=== PATIENT | female | born 1990 | race Caucasian/White ===

== ENCOUNTER 2017-11-12 20:57 | Emergency (ER) | payer OTHER ==
[2017-11-12 21:22] VITALS: BP 126/72; PULSE 97; O2SAT 95
--- NOTE | 2017-11-12 21:27 | ERPHSYRPT ---
- History of Present Illness Time Seen by Provider: 11/12/17 21:22 Source: patient Exam Limitations: no limitations Patient Subjective Stated Complaint: cough nasal congestion x 2-3 days. productive but has not looked at it.. denies fever. Triage Nursing Assessment: alert and oriented in no acute distress. lungs clear bilat. wstates her ears are hurting because of the head congestion. denies fever. Physician History: 27-year-old white female arrives with complaint of nasal congestion pain in her ears runny nose productive clear cough symptoms for 2-3 days. Patient has had nol fever no vomiting no diarrhea. Past medical history is negative Timing/Duration: day(s) (2-3 days) Severity: mild Modifying Factors: Improves With: nothing Associated Symptoms: cough, other (runny nose bilateral ear pain), No nausea, No vomiting, No abdominal pain, No shortness of breath, No heartburn, No diaphoresis, No chills, No chest pain, No fever, No headaches, No loss of appetite, No malaise, No rash, No syncope, No seizure, No weakness Immunizations Up to Date: (unknown) - Review of Systems Constitutional: No Fever, No Chills Eyes: No Symptoms Ears, Nose, & Throat: Ear Pain, Nose Congestion, Nose Discharge, No Ear Discharge, No Hearing Changes, No Tinnitus, No Nose Pain, No Sinus Drainage, No Epistaxis, No Mouth Pain, No Mouth Swelling, No Loose Teeth, No Throat Pain, No Throat Swelling, No Hoarse, No Painful Swallowing, No Snoring, No Stridor Respiratory: Cough, No Cyanosis, No Dyspnea, No Dyspnea on Exertion (ESCOTO), No Stridor, No Wheezing Cardiac: No Chest Pain, No Edema, No Syncope Abdominal/Gastrointestinal: No Abdominal Pain, No Nausea, No Vomiting, No Diarrhea Genitourinary Symptoms: No Dysuria Musculoskeletal: No Symptoms, No Back Pain, No Neck Pain Skin: No Rash Neurological: No Dizziness, No Focal Weakness, No Sensory Changes Psychological: No Symptoms Endocrine: No Symptoms All Other Systems: Reviewed and Negative - Past Medical History Pertinent Past Medical History: Yes Neurological History: No Pertinent History Cardiac History: No Pertinent History Respiratory History: No Pertinent History Endocrine Medical History: No Pertinent History Musculoskeletal History: No Pertinent History GI Medical History: No Pertinent History History: No Pertinent History Psycho-Social History: No Pertinent History Female Reproductive Disorders: No Pertinent History - Past Surgical History Past Surgical History: No - Social History Smoking Status: Current every day smoker Exposure to second hand smoke: No Drug Use: none Patient Lives Alone: No - Female History Hx Now: No - Nursing Vital Signs Nursing Vital Signs: Initial Vital Signs Temperature 98.2 F 11/12/17 21:06 Pulse Rate 97 H 11/12/17 21:06 Respiratory Rate 18 11/12/17 21:06 Blood Pressure 126/72 11/12/17 21:06 O2 Sat by Pulse Oximetry 95 11/12/17 21:06 Pain Scale Pain Intensity 0 - Physical Exam General Appearance: no apparent distress, alert Eye Exam: PERRL/EOMI, eyes nml inspection Ears, Nose, Throat Exam: TMs normal, pharynx normal, moist mucous membranes, other (clear nasal discharge), No TM abnormal (R), No TM abnormal (L) Neck Exam: normal inspection, non-tender, supple, full range of motion Respiratory Exam: normal breath sounds, lungs clear, No respiratory distress Cardiovascular Exam: regular rate/rhythm, normal heart sounds, normal peripheral pulses Gastrointestinal/Abdomen Exam: soft, normal bowel sounds, No tenderness, No mass Back Exam: normal inspection, normal range of motion, No CVA tenderness, No vertebral tenderness Extremity Exam: normal inspection, normal range of motion, pelvis stable Neurologic Exam: alert, oriented x 3, cooperative, normal mood/affect, nml cerebellar function, nml station & gait, sensation nml, No motor deficits Skin Exam: normal color, warm, dry, No rash Lymphatic Exam: No adenopathy SpO2 Interpretation: normal (95%) SpO2: 95 Oxygen Delivery: Room Air - Course Nursing assessment & vital signs reviewed: Yes - Progress Progress: improved Progress Note: 11/12/17 21:25 27-year-old white female with complaint of nasal congestion bilateral ear pain cough productive of clear mucus symptoms for 2-3 days no fever no nausea no vomiting. Patient does smoke. Physical examination unremarkable except for small amount of clear nasal discharge. Impression upper respiratory infection. Plan quit smoking plenty of fluids Tylenol every 4-6 hours as needed for pain or temperature greater than 100.5. - Departure Time of Disposition: 21:26 Departure Disposition: Home Clinical Impression: URI (upper respiratory infection) Qualifiers: URI type: unspecified URI Qualified Code(s): J06.9 - Acute upper respiratory infection, unspecified Condition: Fair Critical Care Time: No Referrals: BRANDI OLIVEIRA [Primary Care Provider] - Additional Instructions: Return home. Plenty of fluids. Stop smoking. Tylenol every 4-6 hours as needed for pain or temperature greater than 100.5. OTC decongestants as needed. Follow-up with your family doctor if symptoms are worse, no better in 48 hours, or persist longer than one week. Return for acute distress or for severe symptoms.
== END 2017-11-12 21:56 | disposition home or self-care (01) ==
LOC: ED 20:57
DX: J06.9 Acute upper respiratory infection, unspecified (principal)
CPT/HCPCS: 99281

== ENCOUNTER 2018-04-02 16:53 | Emergency (ER) | payer OTHER ==
--- NOTE | 2018-04-02 17:36 | ERPHSYRPT ---
- History of Present Illness Time Seen by Provider: 04/02/18 17:31 Source: patient Exam Limitations: no limitations Patient Subjective Stated Complaint: Started with a cough yesterday and woke up today and was having a hard time breathing Triage Nursing Assessment: Pt A&O x3, stated that she had a cough that started yesterday and woke today to shortness of breath, T 102.1, productive green cough , no edema, wheezes in left upper lobe, no difficulty with strength, pulses normal Physician History: This is a 28-year-old white female who arrives with complaint of feeling short of breath fever general malaise symptoms since today she denies nausea or vomiting states she has had a sore throat. Past medical history is negative past surgical history tonsillectomy and adenoidectomy Social history denies tobacco alcohol or illicit drug use Timing/Duration: today Severity: moderate Modifying Factors: Improves With: nothing Associated Symptoms: shortness of breath, fever, malaise, other (sore throat), No nausea, No vomiting, No abdominal pain, No heartburn, No diaphoresis, No cough, No chills, No chest pain, No headaches, No loss of appetite, No rash, No syncope, No seizure, No weakness Allergies/Adverse Reactions: Penicillins Allergy (Verified 04/02/18 17:14) Hives - Review of Systems Constitutional: Fever, Malaise, No Chills, No Fatigue, No Lethargy, No Night Sweats, No Weakness, No Weight Loss Eyes: No Symptoms Ears, Nose, & Throat: Throat Pain, No Ear Pain, No Ear Discharge, No Hearing Changes, No Tinnitus, No Nose Pain, No Nose Congestion, No Nose Discharge, No Sinus Drainage, No Epistaxis, No Mouth Pain, No Mouth Swelling, No Loose Teeth, No Throat Swelling, No Hoarse, No Painful Swallowing, No Snoring, No Stridor Respiratory: Cough, Dyspnea, No Cyanosis, No Dyspnea on Exertion (ESCOTO), No Stridor, No Wheezing Cardiac: No Chest Pain, No Edema, No Syncope Abdominal/Gastrointestinal: No Abdominal Pain, No Nausea, No Vomiting, No Diarrhea Genitourinary Symptoms: No Dysuria Musculoskeletal: No Back Pain, No Neck Pain Skin: No Rash Neurological: No Dizziness, No Focal Weakness, No Sensory Changes Psychological: No Symptoms Endocrine: No Symptoms All Other Systems: Reviewed and Negative - Past Medical History Pertinent Past Medical History: Yes Neurological History: No Pertinent History ENT History: No Pertinent History Cardiac History: No Pertinent History Respiratory History: No Pertinent History Endocrine Medical History: No Pertinent History Musculoskeletal History: No Pertinent History GI Medical History: No Pertinent History History: No Pertinent History Psycho-Social History: No Pertinent History Female Reproductive Disorders: No Pertinent History - Past Surgical History Past Surgical History: Yes - Social History Smoking Status: Current every day smoker How long have you smoked: 11 yrs Exposure to second hand smoke: No Drug Use: none Patient Lives Alone: No - Female History Hx Last Menstrual Period: 2 yrs ago-- Hx Now: No - Nursing Vital Signs Nursing Vital Signs: Initial Vital Signs Temperature 102.1 F 04/02/18 17:01 Pulse Rate 118 H 04/02/18 17:01 Blood Pressure 139/83 04/02/18 17:01 O2 Sat by Pulse Oximetry 92 L 04/02/18 17:01 Pain Scale Pain Intensity 0 - Physical Exam General Appearance: mild distress, other (wwell-developed obese white female flushed in appearance) Eye Exam: PERRL/EOMI, eyes nml inspection Ears, Nose, Throat Exam: normal ENT inspection, TMs normal, pharynx normal, moist mucous membranes, pharyngeal erythema (slight pharyngeal erythema) Neck Exam: normal inspection, non-tender, supple, full range of motion Respiratory Exam: normal breath sounds, lungs clear, No respiratory distress Cardiovascular Exam: tachycardia, No murmur Gastrointestinal/Abdomen Exam: soft, normal bowel sounds, No tenderness, No mass Back Exam: normal inspection, normal range of motion, No CVA tenderness, No vertebral tenderness Extremity Exam: normal inspection, normal range of motion, pelvis stable Neurologic Exam: alert, oriented x 3, cooperative, 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, normal mood/affect, nml cerebellar function, nml station & gait, sensation nml, No motor deficits Skin Exam: warm, dry, other (flushed in appearance), No rash SpO2 Interpretation: normal (94%) SpO2: 94 Oxygen Delivery: Room Air - Course Nursing assessment & vital signs reviewed: Yes EKG Interpreted by Me: RATE (115 BPM), Sinus Tach, NORMAL AXIS, Other (ekg: sinus tachycardia, 1 15 bpm, normal axis, no acute ST or T wave changes noted) - Radiology Exams Chest X-ray Interpretation: Interpreted by me (no acute disease process noted) Ordered Tests: Active Orders 24 hr Category Date Time Status Clean Catch Urine Specimen STAT Care 04/02/18 17:23 Active EKG-ER Only STAT Care 04/02/18 17:46 Active IV Insertion STAT Care 04/02/18 17:16 Active CHEST 1 VIEW (PORTABLE) Stat Exams 04/02/18 18:39 Taken BLOOD CULTURE Stat Lab 04/02/18 17:30 Received BLOOD CULTURE Stat Lab 04/02/18 18:09 Received CBC W DIFF Stat Lab 04/02/18 17:45 Completed CMP Stat Lab 04/02/18 17:45 Completed CULTURE, THROAT Stat Lab 04/02/18 17:45 Received CULTURE,URINE Stat Lab 04/02/18 17:52 Received D-DIMER QUANTITATION Stat Lab 04/02/18 17:45 Completed HCG QUALITATIVE,SERUM Stat Lab 04/02/18 17:45 Completed Lactic Acid Stat Lab 04/02/18 17:46 Completed STREP SCREEN-BETA A Stat Lab 04/02/18 17:45 Completed UA W/ MICROSCOPIC Stat Lab 04/02/18 17:52 Completed Respiratory Nebulizer STAT RT 04/02/18 19:38 Completed Medication Summary Discontinued Medications Generic Name Dose Route Start Last Admin Trade Name Freq PRN Reason Stop Dose Admin Acetaminophen 975 mg 04/02/18 18:39 04/02/18 18:41 Tylenol 325 Mg PO 04/02/18 18:40 975 mg STAT ONE Administration Acetaminophen Confirm 04/02/18 18:42 Tylenol 325 Mg Administered 04/02/18 18:43 Dose 975 mg .ROUTE .STK-MED ONE Albuterol/Ipratropium 3 ml 04/02/18 19:37 04/02/18 19:59 Duoneb 0.5-3 Mg/3 Ml Neb IH 04/02/18 19:38 3 ml STAT ONE Administration Albuterol/Ipratropium Confirm 04/02/18 19:58 Duoneb 0.5-3 Mg/3 Ml Neb Administered 04/02/18 19:59 Dose 3 ml IH .STK-MED ONE Ceftriaxone Sodium/Dextrose 1 g in 50 mls @ 100 mls/hr 04/02/18 18:31 18:37 Rocephin 1 Gm-D5w 50 Ml Bag IV 04/02/18 19:00 Infused STAT STA Infusion Ceftriaxone Sodium/Dextrose Confirm 04/02/18 18:32 Rocephin 1 Gm-D5w 50 Ml Bag Administered 04/02/18 18:33 Dose 1 g in 50 mls @ ud IV .STK-MED ONE Sodium Chloride 1,000 mls @ 999 mls/hr 04/02/18 18:50 04/02/18 18:53 Sodium Chloride 0.9% 1000 Ml IV 04/02/18 19:50 999 mls/hr .Q1H1M STA Administration Sodium Chloride 1,000 mls @ 999 mls/hr 04/02/18 18:51 04/02/18 18:53 Sodium Chloride 0.9% 1000 Ml IV 04/02/18 19:51 999 mls/hr .Q1H1M STA Administration Sodium Chloride Confirm 04/02/18 18:52 Sodium Chloride 0.9% 1000 Ml Administered 04/02/18 18:53 Dose 2,000 mls @ ud .ROUTE .STK-MED ONE Lab/Rad Data: Laboratory Result Diagrams 04/02/18 17:45 04/02/18 17:45 Laboratory Results 04/02/18 04/02/18 04/02/18 Range/Units 17:52 17:46 17:45 WBC (4.0-10.5) K/mm3 RBC (4.1-5.4) M/mm3 Hgb (12.0-16.0) gm/dl Hct (35-47) % MCV (78-100) fl MCH (26-32) pg MCHC (32-36) g/dl RDW (11.5-14.0) % Plt Count (150-450) K/mm3 MPV (6-9.5) fl Gran % (36.0-66.0) % Eos # (Auto) (0-0.5) Absolute Lymphs (auto) (1.0-4.6) Absolute Monos (auto) (0.0-1.3) Lymphocytes % (24.0-44.0) % Monocytes % (0.0-12.0) % Eosinophils % (0.00-5.0) % Basophils % (0.0-0.4) % Absolute Granulocytes (1.4-6.9) Basophils # (0-0.4) D-Dimer (215-500) ng/mL Sodium (137-145) mmol/L Potassium (3.5-5.1) mmol/L Chloride (98-107) mmol/L Carbon Dioxide (22-30) mmol/L Anion Gap (5-15) MEQ/L BUN (7-17) mg/dL Creatinine (0.52-1.04) mg/dL Estimated GFR ML/MIN Glucose (74-106) mg/dL Lactic Acid 0.9 (0.4-2.0) Calcium (8.4-10.2) mg/dL Total Bilirubin (0.2-1.3) mg/dL AST (14-36) U/L ALT (0-35) U/L Alkaline Phosphatase (38-126) U/L Serum Total Protein (6.3-8.2) g/dL Albumin (3.5-5.0) g/dL Serum , Qual (Negative) Ur Collection Type VOID Urine Color YELLOW (YELLOW) Urine Appearance CLOUDY (CLEAR) Urine pH 8.0 (5-6) Ur Specific Nash 1.010 (1.005-1.025) Urine Protein NEGATIVE (Negative) Urine Ketones NEGATIVE (NEGATIVE) Urine Blood 250 (0-5) Tito/ul Urine Nitrite NEGATIVE (NEGATIVE) Urine Bilirubin NEGATIVE (NEGATIVE) Urine Urobilinogen NORMAL (0-1) mg/dL Ur Leukocyte Esterase TRACE (NEGATIVE) Urine Microscopic RBC 2-5 (0-2) /HPF Urine Microscopic WBC 10-15 (0-5) /HPF Ur Epithelial Cells MANY (FEW) /HPF Urine Bacteria MODERATE (NEGATIVE) /HPF Urine Mucus SLIGHT (NEGATIVE) /HPF Urine Culture Reflexed YES (NO) Urine Glucose NEGATIVE (NEGATIVE) mg/dL Streptococcus Screen NEGATIVE (Negative) Specimen Received 04/02/18 [id number] 04/02/18 04/02/18 04/02/18 Range/Units 17:45 17:45 17:45 WBC (4.0-10.5) K/mm3 RBC (4.1-5.4) M/mm3 Hgb (12.0-16.0) gm/dl Hct (35-47) % MCV (78-100) fl MCH (26-32) pg MCHC (32-36) g/dl RDW (11.5-14.0) % Plt Count (150-450) K/mm3 MPV (6-9.5) fl Gran % (36.0-66.0) % Eos # (Auto) (0-0.5) Absolute Lymphs (auto) (1.0-4.6) Absolute Monos (auto) (0.0-1.3) Lymphocytes % (24.0-44.0) % Monocytes % (0.0-12.0) % Eosinophils % (0.00-5.0) % Basophils % (0.0-0.4) % Absolute Granulocytes (1.4-6.9) Basophils # (0-0.4) D-Dimer 423 (215-500) ng/mL Sodium 140 (137-145) mmol/L Potassium 3.9 (3.5-5.1) mmol/L Chloride 103 (98-107) mmol/L Carbon Dioxide 28 (22-30) mmol/L Anion Gap 13.1 (5-15) MEQ/L BUN 12 (7-17) mg/dL Creatinine 0.73 (0.52-1.04) mg/dL Estimated GFR > 60.0 ML/MIN Glucose 106 (74-106) mg/dL Lactic Acid (0.4-2.0) Calcium 8.9 (8.4-10.2) mg/dL Total Bilirubin 0.40 (0.2-1.3) mg/dL AST 17 (14-36) U/L ALT 17 (0-35) U/L Alkaline Phosphatase 70 (38-126) U/L Serum Total Protein 7.5 (6.3-8.2) g/dL Albumin 4.2 (3.5-5.0) g/dL Serum , Qual NEGATIVE (Negative) Ur Collection Type Urine Color (YELLOW) Urine Appearance (CLEAR) Urine pH (5-6) Ur Specific Nash (1.005-1.025) Urine Protein (Negative) Urine Ketones (NEGATIVE) Urine Blood (0-5) Tito/ul Urine Nitrite (NEGATIVE) Urine Bilirubin (NEGATIVE) Urine Urobilinogen (0-1) mg/dL Ur Leukocyte Esterase (NEGATIVE) Urine Microscopic RBC (0-2) /HPF Urine Microscopic WBC (0-5) /HPF Ur Epithelial Cells (FEW) /HPF Urine Bacteria (NEGATIVE) /HPF Urine Mucus (NEGATIVE) /HPF Urine Culture Reflexed (NO) Urine Glucose (NEGATIVE) mg/dL Streptococcus Screen (Negative) Specimen Received 04/02/18 Range/Units 17:45 WBC 15.9 H (4.0-10.5) K/mm3 RBC 4.27 (4.1-5.4) M/mm3 Hgb 12.1 (12.0-16.0) gm/dl Hct 38.3 (35-47) % MCV 89.7 (78-100) fl MCH 28.3 (26-32) pg MCHC 31.6 L (32-36) g/dl RDW 15.3 H (11.5-14.0) % Plt Count 272 (150-450) K/mm3 MPV 10.5 H (6-9.5) fl Gran % 83.1 H (36.0-66.0) % Eos # (Auto) 0.29 (0-0.5) Absolute Lymphs (auto) 1.46 (1.0-4.6) Absolute Monos (auto) 0.91 (0.0-1.3) Lymphocytes % 9.2 L (24.0-44.0) % Monocytes % 5.7 (0.0-12.0) % Eosinophils % 1.8 (0.00-5.0) % Basophils % 0.2 (0.0-0.4) % Absolute Granulocytes 13.21 H (1.4-6.9) Basophils # 0.03 (0-0.4) D-Dimer (215-500) ng/mL Sodium (137-145) mmol/L Potassium (3.5-5.1) mmol/L Chloride (98-107) mmol/L Carbon Dioxide (22-30) mmol/L Anion Gap (5-15) MEQ/L BUN (7-17) mg/dL Creatinine (0.52-1.04) mg/dL Estimated GFR ML/MIN Glucose (74-106) mg/dL Lactic Acid (0.4-2.0) Calcium (8.4-10.2) mg/dL Total Bilirubin (0.2-1.3) mg/dL AST (14-36) U/L ALT (0-35) U/L Alkaline Phosphatase (38-126) U/L Serum Total Protein (6.3-8.2) g/dL Albumin (3.5-5.0) g/dL Serum , Qual (Negative) Ur Collection Type Urine Color (YELLOW) Urine Appearance (CLEAR) Urine pH (5-6) Ur Specific Nash (1.005-1.025) Urine Protein (Negative) Urine Ketones (NEGATIVE) Urine Blood (0-5) Tito/ul Urine Nitrite (NEGATIVE) Urine Bilirubin (NEGATIVE) Urine Urobilinogen (0-1) mg/dL Ur Leukocyte Esterase (NEGATIVE) Urine Microscopic RBC (0-2) /HPF Urine Microscopic WBC (0-5) /HPF Ur Epithelial Cells (FEW) /HPF Urine Bacteria (NEGATIVE) /HPF Urine Mucus (NEGATIVE) /HPF Urine Culture Reflexed (NO) Urine Glucose (NEGATIVE) mg/dL Streptococcus Screen (Negative) Specimen Received - Progress Progress: improved Progress Note: 04/02/18 17:35 28-year-old morbidly obese white female arrives with complaint of shortness of breath cough fever symptoms since today. Patient apparently triggers sepsis alert. Will go ahead and ordered CBC CMP blood cultures lactate begin IV fluids. Patient with good perfusion to all extremities good capillary refill to all extremities normal oxygen saturation 04/02/18 18:31 Patient's lactate is 0.9 patient does not appear to be septic white blood cell count 15.9 hemoglobin 12.1 hematocrit 38.3 patient does have 10-15 white cells per high-power field in her urine Rocephin 1 g has been ordered for the patient patient is allergic to penicillin I have discussed the low incidence of cross-reaction with Rocephin in those allergic to penicillin. 04/02/18 19:12 Patient's EKG repeated secondary to limb lead reversal EKG: Sinus tachycardia 1 15 bpm normal axis, no acute ST or T wave changes noted 04/02/18 19:38 Patient improving patient recheck patient with some wheezing on recheck. Will go ahead and give patient a DuoNeb treatment. Patient receiving her IV normal saline 2 L. Patient has received Rocephin 1 g IV. 04/02/18 20:27 Patient feeling better after DuoNeb treatment. Patient states she wants to go home. Patient receiving 2 L of normal saline. Will discharge. Diagnosis 1 shortness of breath. 2 bronchitis. 3 bronchospasm. 4 UTI. - Departure Time of Disposition: 20:28 Departure Disposition: Home Clinical Impression: Shortness of breath, Bronchitis, Bronchospasm UTI (urinary tract infection) Qualifiers: Urinary tract infection type: site unspecified Hematuria presence: without hematuria Qualified Code(s): N39.0 - Urinary tract infection, site not specified Fever Qualifiers: Fever type: unspecified Qualified Code(s): R50.9 - Fever, unspecified Condition: Fair Critical Care Time: No Referrals: BRANDI OLIVEIRA [Primary Care Provider] - Additional Instructions: Return home. Levaquin 500 mg orally daily 10 days, Albuterol inhaler 2 puffs every 4 hours as needed for shortness of breath, Tylenol every 4 hours as needed for temperature greater than 100.5, Follow-up with your family doctor, Return for acute distress or for severe symptoms, your x-ray has been preliminarily read, it will be reread tomorrow, you will be contacted if any discrepancies are noted. Prescriptions: Albuterol Common Canister [Proventil Common Canister] 2 puff IH Q4-6HPRN PRN #1 canister PRN Reason: Shortness Of Breath/Wheezing Levofloxacin [Levaquin] 500 mg PO DAILY #10 tablet
[2018-04-02 17:55] LABS: BASOPHIL % 0.2 % (0.0-0.4); Basophil (Absolute #) 0.03 (0-0.4); Eosinophil % 1.8 % (0.00-5.0); Eosinophil (Absolute #) 0.29 (0-0.5); Granulocyte Absolute (ANC) 13.21 (1.4-6.9); Granulocytes % 83.1 % (36.0-66.0); Hematocrit 38.3 % (35-47); Hemoglobin 12.1 gm/dl (12.0-16.0); Lymphocyte (Absolute #) 1.46 (1.0-4.6); Lymphocytes % 9.2 % (24.0-44.0); Mean Cell Volume 89.7 fl (78-100); Mean Corpuscular Hemoglobin 28.3 pg (26-32); Mean Corpuscular Hgb Concent. 31.6 g/dl (32-36); Mean Platelet Volume 10.5 fl (6-9.5); Monocyte (Absolute #) 0.91 (0.0-1.3); Monocytes % 5.7 % (0.0-12.0); Platelet Count 272 K/mm3 (150-450); Red Blood Count 4.27 M/mm3 (4.1-5.4); Red Cell Distribution Width 15.3 % (11.5-14.0); White Blood Count 15.9 K/mm3 (4.0-10.5)
[2018-04-02 18:18] LABS: Appearance CLOUDY (CLEAR); Leukocyte Esterase TRACE (NEGATIVE)
[2018-04-02 18:19] LABS: Bacteria MODERATE /HPF (NEGATIVE); Bilirubin NEGATIVE (NEGATIVE); Blood 250 Ery/ul (0-5); Epithelial Cells MANY /HPF (FEW); Glucose NEGATIVE (NEGATIVE); Ketones NEGATIVE (NEGATIVE); Mucus SLIGHT /HPF (NEGATIVE); Nitrite NEGATIVE (NEGATIVE); Protein,Urine Dip NEGATIVE (Negative); Urobilinogen NORMAL mg/dL (0-1)
[2018-04-02] MEDS ORDERED: ROCEPHIN 1 Gm-D5w 50 ml Bag** 1 G/50 ML IVPB IV STA (18:31)
[2018-04-02] MEDS ORDERED: ROCEPHIN 1 Gm-D5w 50 ml Bag** 1 G/50 ML IVPB IV ONE (18:32)
[2018-04-02 18:35] LABS: ALBUMIN 4.2 g/dL (3.5-5.0); ALKALINE PHOSPHATASE 70 U/L (38-126); ANION GAP 13.1 MEQ/L (5-15); BLOOD UREA NITROGEN 12 mg/dL (7-17); CHLORIDE 103 mmol/L (98-107); Calcium 8.9 mg/dL (8.4-10.2); Carbon Dioxide 28 mmol/L (22-30); Creatinine 1 0.73 mg/dL (0.52-1.04); Glucose 106 mg/dL (74-106); Potassium 3.9 mmol/L (3.5-5.1); SGOT/AST 17 U/L (14-36); SGPT/ALT 17 U/L (0-35); SODIUM 140 mmol/L (137-145); Total Protein 7.5 g/dL (6.3-8.2)
[2018-04-02] MEDS ORDERED: TYLENOL 325 MG PO ONE (18:39)
[2018-04-02] MEDS ORDERED: TYLENOL 325 MG ONE (18:42)
[2018-04-02] MEDS ORDERED: Sodium Chloride 0.9% 1000 ML 1,000 ML IV STA ×2 (18:50→18:51)
[2018-04-02] MEDS ORDERED: Sodium Chloride 0.9% 1000 ML 2,000 ML ONE (18:52)
[2018-04-02] MEDS ORDERED: DUONEB 0.5-3 MG/3 ml Neb IH ONE ×2 (19:37→19:58)
[2018-04-02 20:09] VITALS: BP 128/76; PULSE 113
[2018-04-02 20:34] VITALS: O2SAT 94
[2018-04-02] MEDS ORDERED: Ventolin Hfa MDI IH ONE (20:52)
[2018-04-02] MEDS ORDERED: Ventolin Hfa MDI IH PRN (20:52)
--- NOTE | 2018-04-03 08:39 | XRAY ---
Indication: Short of breath and fever. Comparison: None Portable apical lordotic chest underinflated without focal infiltrate, consolidation, or large effusion. Heart is not enlarged. Bony thorax intact. Impression: Nonacute underinflated chest.
== END 2018-04-02 21:10 | disposition home or self-care (01) ==
LOC: ED 16:53
DX: J40 Bronchitis, not specified as acute or chronic (principal); J98.01 Acute bronchospasm; N39.0 Urinary tract infection, site not specified; R53.81 Other malaise
CPT/HCPCS: 36000; 36415; 71045; 80053; 81000; 83605; 84703; 85025; 85379; 87040; 87070; 87086; 87430; 93005; 94150; 94640; 96360; 99284; J0696; A9270-GY